=== PATIENT | female | born 1985 | race Caucasian/White ===

== ENCOUNTER → 2017-09-06 | Outpatient (CLI) | payer OTHER ==
--- NOTE | 2017-09-07 10:32 | RAD ---
Procedure: XR SHOULDER 2 OR MORE VIEWS Exam Date: 09/06/2017 11:43 AM CDT Ordering Provider: JESUS Rubi Clinical Indication: PAIN IN RT SHOULDER Comparison: None Findings: No fracture, focal osseous destruction, or malalignment. Joint spaces are preserved. Soft tissues are unremarkable. Catheter tubing is seen projecting over the right neck and chest. IMPRESSION: No acute osseous abnormality. Electronically signed by: Estee Darby MD 09/07/2017 10:31 AM CDT
== END | disposition home or self-care (01) ==
LOC: YCFC.O 11:18
PROVIDERS: ATTEND Nurse Practitioner Family
DX: M25.511 Pain in right shoulder (principal); Z00.00 Encounter for general adult medical examination without abnormal findings; Z13.220 Encounter for screening for lipoid disorders; Z13.29 Encounter for screening for other suspected endocrine disorder; Q65.89 Other specified congenital deformities of hip; R73.09 Other abnormal glucose

== ENCOUNTER → 2019-04-09 | Outpatient (CLI) | payer OTHER ==
--- NOTE | 2019-04-09 12:48 | RAD ---
EXAM DESCRIPTION: Chest,2 Views CLINICAL HISTORY: ASTHMA COMPARISON: None TECHNIQUE: PA/lateral FINDINGS: Ventriculoperitoneal shunt tubing seen over the right chest. There is rightward scoliosis of the mid and lower T-spine. Heart size is normal with normal pulmonary vascularity. No pleural effusion or pneumothorax. Lungs are clear with no consolidating infiltrate. Lateral view shows intact sternum and T-spine. IMPRESSION: No acute process is identified in the chest. Electronically signed by: Timmy Mendes MD 04/09/2019 12:46 PM CDT
== END ==
LOC: YCFC.O 11:12
PROVIDERS: ATTEND Nurse Practitioner Family
DX: Z00.00 Encounter for general adult medical examination without abnormal findings (principal); J45.909 Unspecified asthma, uncomplicated; R00.2 Palpitations; Q65.89 Other specified congenital deformities of hip; Z13.220 Encounter for screening for lipoid disorders; Z13.29 Encounter for screening for other suspected endocrine disorder